=== PATIENT | female | born 1950 | race American Indian/Alaskan Native ===

== ENCOUNTER 2017-10-22 18:00 | Emergency (ER) | payer OTHER ==
[2017-10-22 18:17] VITALS: BP 138/81; PULSE 112; RESP 20; TEMP 101.5; O2SAT 95; BMI 28.8
--- NOTE | 2017-10-22 19:07 | ED PDOC ---
Arrival/HPI - General Chief Complaint: Flu-like Symptoms Time Seen by Provider: 10/22/17 19:02 Historian: Patient - History of Present Illness Narrative History of Present Illness (Text): 10/22/17 19:03 This 67 yo female with pmh COPD, asthma, presents to this ED c/o myalgias, arthralgias, cough, wheezing, fever x 3 days. Patient stated symptoms has progressively worsen. Patient admits daughter had similar symptoms. Patient denies hemoptysis, abdominal pain, cp, leg swelling, calf pain, recent travel, recent trauma, recent surgery, or urinary symptoms. Time/Duration: Other (see hpi) Context: Home Past Medical History - Provider Review Nursing Documentation Reviewed: Yes - Reproductive Menopause: Yes - Cardiac Hx Cardiac Disorders: No - Pulmonary Hx Respiratory Disorders: Yes Hx Asthma: Yes Hx Chronic Obstructive Pulmonary Disease (COPD): Yes - Psychiatric Hx Substance Use: No - Surgical History Hx Tubal Ligation: Yes - Anesthesia Hx Anesthesia: Yes Hx Anesthesia Reactions: No Hx Malignant Hyperthermia: No Family/Social History - Physician Review Nursing Documentation Reviewed: Yes Family/Social History: Other (noncontributory) Smoking Status: Former Smoker Hx Alcohol Use: Yes Frequency of alcohol use: Socially Hx Substance Use: No Allergies/Home Meds Allergies/Adverse Reactions: Allergies codeine Allergy (Verified 10/22/17 18:17) NAUSEA Home Medications: Home Meds Medication Instructions Recorded Confirmed Albuterol HFA [Ventolin HFA 90 2 puff IH [id number] PRN 10/22/17 10/22/17 mcg/actuation (8 g)] Review of Systems - Review of Systems Constitutional: Fatigue, Fevers. absent: Weight Change, Night Sweats Eyes: Normal. absent: Vision Changes ENT: Normal. absent: Sore Throat, Rhinorrhea Respiratory: Cough, Wheezing. absent: SOB, Sputum Cardiovascular: Normal. absent: Chest Pain, Palpitations Gastrointestinal: Normal. absent: Abdominal Pain, Nausea, Vomiting Genitourinary Female: Normal. absent: Dysuria, Frequency, Hematuria Musculoskeletal: Arthralgias, Myalgias. absent: Back Pain, Neck Pain, Joint Swelling Skin: Normal. absent: Rash Neurological: Normal. absent: Headache, Dizziness, Focal Weakness, Gait Changes , Speech Changes, Facial Droop, Disequilibrium Endocrine: Normal Hemo/Lymphatic: Normal Psychiatric: Normal Physical Exam Vital Signs Temp Pulse Resp BP Pulse Ox 10/22/17 18:10 101.5 F H 112 H 20 138/81 95 Temperature: Febrile Blood Pressure: Normal Pulse: Tachycardic Respiratory Rate: Normal Appearance: Positive for: Well-Appearing, Non-Toxic, Comfortable Pain Distress: None Mental Status: Positive for: Alert and Oriented X 3 - Systems Exam Head: Present: Atraumatic, Normocephalic Pupils: Present: PERRL Extroacular Muscles: Present: EOMI Conjunctiva: Present: Normal Mouth: Present: Moist Mucous Membranes Neck: Present: Normal Range of Motion Respiratory/Chest: Present: Good Air Exchange, Wheezes, Rhonchi (mild LLL rhonchi). No: Respiratory Distress, Accessory Muscle Use Cardiovascular: Present: Regular Rate and Rhythm, Normal S1, S2. No: Murmurs Abdomen: Present: Normal Bowel Sounds. No: Tenderness, Distention, Peritoneal Signs Back: Present: Normal Inspection Upper Extremity: Present: Normal Inspection. No: Cyanosis, Edema Lower Extremity: Present: Normal Inspection. No: Edema Neurological: Present: GCS=15, CN II-XII Intact, Speech Normal Skin: Present: Warm, Dry, Normal Color. No: Rashes Psychiatric: Present: Alert, Oriented x 3, Normal Insight, Normal Concentration Medical Decision Making ED Course and Treatment: 10/22/17 20:18 Re-evaluation. Patient feels better. Discussed results and plan with patient who expresses understanding. All questions answered and there is agreement with the plan to discharge home with instructions. Patient stable for discharge. Return if symptoms persist or worsen. Patient was recommended to control fever with OTC or Motrin PRN. To f/u pmd in 1-2 days. Drink enough fluids and rest. To take prescribed medication as instructed, and to return to ED if symptoms worsen. Patient understood plan. Re-evaluation Time: 20:20 Reassessment Condition: Re-examined, Improved - Lab Interpretations Lab Results: Lab Results 10/22/17 19:25: Influenza Typ A,B (EIA) Pos for influenza a H - RAD Interpretation Radiology Orders: 10/22/17 19:02 CHEST PORTABLE [RAD] Stat - Medication Orders Current Medication Orders: Discontinued Medications Acetaminophen (Tylenol 325mg Tab) 975 mg PO STAT STA Stop: 10/22/17 19:07 Last Admin: 10/22/17 19:43 Dose: 975 mg Albuterol/Ipratropium (Duoneb 3 Mg/0.5 Mg (3 Ml) Ud) 3 ml IH Q15M ALCIRA Stop: 10/22/17 19:46 Last Admin: 10/22/17 19:44 Dose: 3 ml Azithromycin (Zithromax) 500 mg PO STAT STA PRN Reason: Protocol Stop: 10/22/17 20:03 Oseltamivir Phosphate (Tamiflu Cap) 75 mg PO STAT STA PRN Reason: Protocol Stop: 10/22/17 20:02 Disposition/Present on Arrival - Present on Arrival Any Indicators Present on Arrival: No History of DVT/PE: No History of Uncontrolled Diabetes: No Urinary Catheter: No History of Decub. Ulcer: No History Surgical Site Infection Following: None - Disposition Have Diagnosis and Disposition been Completed?: Yes Diagnosis: Influenza A Disposition: HOME/ ROUTINE Disposition Time: 20:20 Patient Plan: Discharge Patient Problems: Current Active Problems Problem Status Onset Influenza A Acute Condition: GOOD Discharge Instructions (ExitCare): H1N1 Influenza (ED) Additional Instructions: Call private doctor office for follow up visit in 1-2 days. Take medication as instructed. Return to emergency if symptoms worsen. Drink enough fluids. Be away from children or elderly till clear by your doctor. Prescriptions: Azithromycin [Z-Froy] 250 mg PO DAILY #4 tab Oseltamivir [Tamiflu] 75 mg PO BID #9 cap Promethazine [Phenergan Syrup] 10 ml PO Q6H PRN #180 ml PRN Reason: Cough Referrals: Anita Beck, [Primary Care Provider] - Follow up with primary Talon Hernandez DO [Staff Provider] - Follow up with primary Forms: [employer] (Fijian)
[2017-10-22] MEDS: Albuterol-Ipratrop 3 mg / 0.5 (3 ml) UD IH SCH ×3 (19:15→19:44)
--- NOTE | 2017-10-23 09:55 | RAD ---
HISTORY: cough COMPARISON: No prior. FINDINGS: LUNGS: No active pulmonary disease. PLEURA: No significant pleural effusion identified, no pneumothorax apparent. CARDIOVASCULAR: Normal. OSSEOUS STRUCTURES: No significant abnormalities. VISUALIZED UPPER ABDOMEN: Normal. OTHER FINDINGS: None. IMPRESSION: No active disease.
== END 2017-10-22 20:50 | disposition home or self-care (01) ==
LOC: ED 18:00
DX: J10.1 Influenza due to other identified influenza virus with other respiratory manifestations (principal); Z87.891 Personal history of nicotine dependence; J44.9 Chronic obstructive pulmonary disease, unspecified

== ENCOUNTER 2018-05-18 13:54 | Emergency (ER) | payer OTHER ==
[2018-05-18 14:00] VITALS: BMI 27.8
[2018-05-18] MEDS ORDERED: Albuterol-Ipratrop 3 mg / 0.5 (3 ml) UD IH STA (14:11)
--- NOTE | 2018-05-18 14:22 | ED PDOC ---
Arrival/HPI - General Time Seen by Provider: 05/18/18 14:05 Historian: Patient - History of Present Illness Narrative History of Present Illness (Text): 05/18/18 14:07 A 68 year old female, whose past medical history includes chronic obstructive pulmonary disease and asthma, presents to the emergency department complaining of cough, congestion, URI, yellow sputum, shortness of breath, and wheezing. Patient reports she is here visiting from [place] and realizes she forgot her nebulizer at home and wants antibiotics. Patient denies fever, chest pain, or any other complaints at this time. No PMD Associated Symptoms (Text): 05/18/18 14:43 Patient complains of approximately one week history of cough congestion and yellow sputum production wheezing and shortness of breath. No chest pain. No fever or chills. She is here from [place] visiting family. Past Medical History - Provider Review Nursing Documentation Reviewed: Yes - Cardiac Hx Cardiac Disorders: No - Pulmonary Hx Respiratory Disorders: Yes Hx Asthma: Yes Hx Chronic Obstructive Pulmonary Disease (COPD): Yes - Psychiatric Hx Substance Use: No - Surgical History Hx Tubal Ligation: Yes - Anesthesia Hx Anesthesia: Yes Hx Anesthesia Reactions: No Hx Malignant Hyperthermia: No Family/Social History - Physician Review Nursing Documentation Reviewed: Yes Family/Social History: No Known Family HX Smoking Status: Former Smoker Hx Alcohol Use: Yes Hx Substance Use: No Allergies/Home Meds Allergies/Adverse Reactions: Allergies codeine Allergy (Verified 10/22/17 18:17) NAUSEA Home Medications: Home Meds Medication Instructions Recorded Confirmed Albuterol HFA [Ventolin HFA 90 2 puff IH [id number] PRN 10/22/17 10/22/17 mcg/actuation (8 g)] Review of Systems - Physician Review All systems were reviewed & negative as marked: Yes - Review of Systems Constitutional: absent: Fevers ENT: Sinus Congestion Respiratory: SOB, Cough, Sputum (yellow), Wheezing Cardiovascular: absent: Chest Pain, Palpitations, Syncope Gastrointestinal: absent: Abdominal Pain, Nausea, Vomiting Neurological: absent: Headache, Dizziness, Focal Weakness Physical Exam Vital Signs Reviewed: Yes Vital Signs Temp Pulse Resp BP Pulse Ox 05/18/18 15:37 98 F 74 18 139/68 98 Temperature: Afebrile Blood Pressure: Normal Pulse: Regular Respiratory Rate: Normal Appearance: Positive for: Well-Appearing, Non-Toxic, Comfortable Pain Distress: None Mental Status: Positive for: Alert and Oriented X 3 - Systems Exam Head: Present: Atraumatic, Normocephalic Pupils: Present: PERRL Extroacular Muscles: Present: EOMI Conjunctiva: Present: Normal Mouth: Present: Moist Mucous Membranes Neck: Present: Normal Range of Motion Respiratory/Chest: Present: Decreased Breath Sounds (bilaterally). No: Respiratory Distress, Accessory Muscle Use, Wheezes, Rales, Retracting, Rhonchi , Tachypneic Cardiovascular: Present: Regular Rate and Rhythm, Normal S1, S2. No: Murmurs Abdomen: No: Tenderness, Distention, Peritoneal Signs Back: Present: Normal Inspection Upper Extremity: Present: Normal Inspection. No: Cyanosis, Edema Lower Extremity: Present: Normal Inspection. No: Edema Neurological: Present: GCS=15, CN II-XII Intact, Speech Normal, Motor Func Grossly Intact Skin: Present: Warm, Dry, Normal Color. No: Rashes Psychiatric: Present: Alert, Oriented x 3, Normal Insight, Normal Concentration Medical Decision Making ED Course and Treatment: 05/18/18 14:11 Impression: 68 year old female with cough, congestion, URI, yellow sputum, shortness of breath, and wheezing. Physical exam shows diminished breath sounds bilaterally, no rales/rhonchi/wheezing/retractions/accessory muscle use. Plan: -- Chest X-ray -- Albuterol -- Reassess and disposition Prior Visits: Notes and results from previous visits were reviewed. Patient was last seen here in the emergency room on 10/22/2017 for myalgias, arthralgias, cough, wheezing, and fever. Patient was discharged home. Progress Notes: - RAD Interpretation Radiology Orders: 05/18/18 14:11 CHEST TWO VIEWS (PA/LAT) [RAD] Stat Chest 2 view shows no infiltrate effusion or cardiomegaly Ict Customer Support Officer: Radiologist - Medication Orders Current Medication Orders: Discontinued Medications Albuterol/Ipratropium (Duoneb 3 Mg/0.5 Mg (3 Ml) Ud) 3 ml IH ONCE STA Stop: 05/18/18 14:12 Last Admin: 05/18/18 14:55 Dose: 3 ml - Scribe Statement The provider has reviewed the documentation as recorded by the Krysta Evans Provider Scribe Provider Scribe Attestation: All medical record entries made by the Scribe were at my direction and personally dictated by me. I have reviewed the chart and agree that the record accurately reflects my personal performance of the history, physical exam, medical decision making, and the department course for this patient. I have also personally directed, reviewed, and agree with the discharge instructions and disposition. Disposition/Present on Arrival - Present on Arrival Any Indicators Present on Arrival: No History of DVT/PE: No History of Uncontrolled Diabetes: No Urinary Catheter: No History of Decub. Ulcer: No History Surgical Site Infection Following: None - Disposition Have Diagnosis and Disposition been Completed?: Yes Diagnosis: Asthmatic bronchitis Disposition: HOME/ ROUTINE Disposition Time: 16:08 Patient Plan: Discharge Condition: GOOD Discharge Instructions (ExitCare): Asthma in Adults, Inhalers, Acute Bronchitis Additional Instructions: Symptomatic treatment. Tylenol or Advil as directed on bottle as needed. Follow- up with PMD. Follow up in ER as needed. Prescriptions: Benzonatate [Tessalon Perles] 100 mg PO Q8 #30 sgl Albuterol HFA [Ventolin HFA 90 mcg/actuation (8 g)] 2 puff IH [id number] #1 puff Azithromycin [Zithromax] 250 mg PO DAILY #6 tab
[2018-05-18 15:41] VITALS: RESP 18; TEMP 98
--- NOTE | 2018-05-18 16:03 | RAD ---
Date of service: 05/18/2018 HISTORY: cough COMPARISON: 10/22/2017 TECHNIQUE: Chest PA and lateral FINDINGS: LUNGS: No active pulmonary disease. PLEURA: No significant pleural effusion identified. No pneumothorax apparent. CARDIOVASCULAR: Normal. OSSEOUS STRUCTURES: No significant abnormalities. VISUALIZED UPPER ABDOMEN: Normal. OTHER FINDINGS: None. IMPRESSION: No active disease.
[2018-05-18 16:14] VITALS: BP 120/62; PULSE 80; O2SAT 99
== END 2018-05-18 16:21 | disposition home or self-care (01) ==
LOC: ED 13:54
DX: J45.909 Unspecified asthma, uncomplicated (principal); Z87.891 Personal history of nicotine dependence